=== PATIENT | female | born 1955 | race Caucasian/White ===

== ENCOUNTER 2017-09-03 08:35 | Day surgery (SDC) | payer BC ==
[2017-09-03] MEDS ORDERED: PROPOFOL 10 MG/ML VIAL IV ONE (08:36)
[2017-09-03] MEDS ORDERED: LIDOCAINE 2% MDV (20MG/ML) 20ML VIAL IV ONE (08:36)
[2017-09-03] MEDS ORDERED: FENTANYL PF 100MCG/2ML VIAL IV ONE (08:36)
--- NOTE | 2017-09-04 10:30 | Operative Note ---
DATE OF SURGERY: 09/03/2017 OPERATION: ESOPHAGOGASTRODUODENOSCOPY with multiple biopsies and La dilation. INDICATION: Chronic gastroesophageal reflux disease with pyrosis. The patient also complaining of lower chest dysphagia to solid foods. Upper endoscopy is performed at this time for further evaluation. She has had esophagitis in the past. She is currently taking Protonix 40 mg daily. ANESTHESIA: Intravenous sedation was administered by the department of anesthesiology and included Diprivan titrated to effect. PROCEDURE: Following informed consent from this alert individual, including a discussion of the risks and benefits of the procedure and an opportunity for the patient to ask questions, the patient was in the left lateral decubitus position. The Olympus [id number] video endoscope was inserted into the esophagus without resistance. The proximal esophagus had a normal appearance with normal folds and distensibility. The distal esophagus demonstrated 3 superficial linear ulcerations extending proximally from the squamocolumnar junction for less than 1 cm. There was some mild resistance with passage of the endoscope into the stomach as well. The gastric mucosa had a normal appearance with normal folds and distensibility. There was a small 3-4 mm polyp noted in the gastric fundus which was biopsied. There were smaller diminutive polyps noted as well in the fundus. The remainder of the stomach was endoscopically normal. The pylorus was patent. The duodenal bulb, sweep and descending duodenum were examined in a serial fashion and found to be normal. The endoscope was then withdrawn back into the body of the stomach. Retroflexion accomplished following air insufflation again was unremarkable except for the above-mentioned polyp where biopsies were taken. The endoscope was then straightened and withdrawn to the distal esophagus where a set of biopsies was taken from the areas of ulceration. This could also represent possible short-segment Sanchez's esophagus although did not have the typical appearance. After biopsy, endoscope was then withdrawn back through a normal mid and proximal esophagus and removed from patient. La dilation was then performed with a 48 La dilator with minimal resistance. The patient tolerated the procedure well and was returned to the recovery area in stable condition. IMPRESSION: 1. Three superficial small distal linear esophageal ulcerations, biopsies taken. 2. Gastric fundal polyps, biopsies taken. 3. La dilation with 48-Macedonian dilator for complaints of dysphagia and some resistance to the passage of the endoscope into the stomach. RECOMMENDATION: The patient was advised further recommendations will be forthcoming pending results of pathology today. The patient was advised to increase her Protonix to 40 mg twice daily for the next 6 weeks and then return to once daily. Further recommendations again will be forthcoming pending her progress and biopsy results. Followup will be with Dr. Collins. As always, thank you for allowing me to participate in the care of your patient. CC: Caleb Collins MD [facility] [place]
== END 2017-09-03 11:02 | disposition home or self-care (01) ==
LOC: HOP 08:35
PROVIDERS: ATTEND Internal Medicine Gastroenterology
DX: K22.10 Ulcer of esophagus without bleeding (principal); K31.7 Polyp of stomach and duodenum; R12 Heartburn; R13.10 Dysphagia, unspecified; K20.9 Esophagitis, unspecified; M06.9 Rheumatoid arthritis, unspecified; E78.00 Pure hypercholesterolemia, unspecified
CPT/HCPCS: 43235; 43450; 00731; J3010

== ENCOUNTER 2017-09-17 07:32 | Day surgery (SDC) | payer BC ==
[~2017-09-17 07:32] MED LIST: ACETAMINOPHEN 1,000 MG/100 ML BTL IV ONE; CEFAZOLIN 2 Gram 2 GM/50 ML BAG IVPB ONE
[2017-09-17] MEDS ORDERED: FENTANYL PF 100MCG/2ML VIAL IV ONE (07:33)
[2017-09-17] MEDS ORDERED: PROPOFOL 10 MG/ML VIAL IV ONE (07:33)
[2017-09-17] MEDS ORDERED: BUPIVACAINE 0.25% W/EPI MPF 30ML VIAL IVP ONE ×2 (07:33)
[2017-09-17] MEDS ORDERED: MIDAZOLAM HCL 2MG/2ML VIAL IV ONE (07:33)
[2017-09-17] MEDS ORDERED: LIDOCAINE 2% MDV (20MG/ML) 20ML VIAL IV ONE (07:33)
--- NOTE | 2017-09-18 13:30 | Operative Note ---
DATE OF SURGERY: 09/17/2017 Surgeon: Be Carolina DO PREOPERATIVE DIAGNOSIS: Scalp mass x6 and back mass. POSTOPERATIVE DIAGNOSIS: Scalp mass x6 and back mass. OPERATION: Excision of scalp mass x6 and excision of back mass x1. All masses on scalp were 1.0 cm into the subcu. The mass on the back was 1.0 cm into the subcu as well. Indication: The patient is a 62-year-old female who presents with multiple masses on her scalp. These all had the appearance of [id number] sebaceous cysts. We did discuss excision. Risks, benefits, and alternatives were discussed. The patient also had a mass on her upper back which we discussed excising as well. Thereafter, consent was signed and questions answered. PROCEDURE: The patient was taken to the operating room and placed in a supine position. Local and IV sedation was administered per the department of anesthesia. The patient's back was prepped and draped in the usual fashion. The area around the mass was anesthetized with a total of 3 mL of 0.25% Sensorcaine with epinephrine. A 5 mm punch was used to punch this lesion. This was then passed off the field and was closed with 3-0 nylon. Attention was now turned to the scalp where the scalp was cleansed with baby shampoo. Each one had been pre-marked. Each one was treated in the exact same fashion. This was anesthetized with a total of 2 mL of 0.25% Sensorcaine with epinephrine. An incision was made over the mass. This was dissected free with hemostat and passed off the field. Each one of these was a 1 cm sebaceous cyst. Each one was closed with 3-0 Prolene. She tolerated the procedure well. She was taken to the recovery room in satisfactory condition. FINDINGS AT THE TIME OF SURGERY: Scalp mass x6 and back mass x1. Final pathology pending. CC: Caleb BERNAL
== END 2017-09-17 10:40 | disposition home or self-care (01) ==
LOC: SUR 07:32
PROVIDERS: ATTEND Surgery
DX: R22.0 Localized swelling, mass and lump, head (principal); R22.2 Localized swelling, mass and lump, trunk; D17.1 Benign lipomatous neoplasm of skin and subcutaneous tissue of trunk; L72.11 Pilar cyst; I10 Essential (primary) hypertension; M06.9 Rheumatoid arthritis, unspecified; E78.00 Pure hypercholesterolemia, unspecified; K21.9 Gastro-esophageal reflux disease without esophagitis
CPT/HCPCS: 11406; 11422 ×6; 00300; J3010; J0690

== ENCOUNTER 2018-05-30 18:27 | Emergency (ER) | payer BC ==
--- NOTE | 2018-05-30 19:13 | Emergency Department Record ---
History of Present Illness - General Chief Complaint: Fall Injury Stated Complaint: FALL INJURY Time Seen by Provider: 05/30/18 18:54 Source: Patient Mode of Arrival: Ambulatory Limitations: No limitations - History of Present Illness Initial Comments: pt slipped on ice and landed on butt and outstretched r hand. pt has pain in back and r forearm. pt has chronic back issues and is scheduled to see a neurosurgeon.. she has a hx of bad discs and foot drop Complaint: Fall Onset/Timin -: Minutes(s) Fall From: Standing, Other When Fall Occurred: Just prior to arrival Fall Witnessed: No Place Fall Occurred: Work Loss of Consciousness: None Prolonged Down Time?: No Symptoms Prior to Fall: None Location: Back, Buttocks Location - Extremities: Right: Forearm Context: Tripped/slipped Associated Symptoms: Numbness, Other - [place] Coma Scale Eye Response: (4) Open spontaneously Motor Response: (6) Obeys commands Verbal Response: (5) Oriented Elizabeth Total: 15 - Related Data Allergies Allergy/AdvReac Type Severity Reaction Status Date / Time phenytoin sodium Allergy BONE Verified 08/02/15 09:37 [From Dilantin] MARROW DEPRESSION phenytoin sodium extended Allergy BONE Verified 08/02/15 09:37 [From Dilantin] MARROW DEPRESSION tetracycline Allergy RASH Verified 06/01/15 11:38 Travel Screening - Travel/Exposure Within Last 30 Days Have you traveled within the last 30 days?: No - Travel/Exposure Within Last Year Have you traveled outside the [place] in the last year?: No - Additonal Travel Details Have you been exposed to anyone with a communicable illness?: No - Travel Symptoms Symptom Screening: None Review of Systems Reviewed: No additional complaints except as noted below Constitutional: Reports: As per HPI. Denies: Chills, Fever, Malaise, Night sweats, Weakness, Weight change Eyes: Reports: As per HPI. Denies: Eye discharge, Eye pain, Photophobia, Vision change ENT: Reports: As per HPI. Denies: Congestion, Dental pain, Ear pain, Epistaxis , Hearing loss, Throat pain Respiratory: Reports: As per HPI. Denies: Cough, Dyspnea, Hemoptysis, Stridor, Wheezes Cardiovascular: Reports: As per HPI. Denies: Arrhythmia, Chest pain, Dyspnea on exertion, Edema, Murmurs, Orthopnea, Palpitations, Paroxysmal nocturnal dyspnea, Rheumatic Fever, Syncope Endocrine: Reports: As per HPI. Denies: Fatigue, Heat or cold intolerance, Polydipsia, Polyuria Gastrointestinal: Reports: As per HPI. Denies: Abdominal pain, Constipation, Diarrhea, Hematemesis, Hematochezia, Melena, Nausea, Vomiting Genitourinary: Reports: As per HPI. Denies: Abnormal menses, Discharge, Dyspareunia, Dysuria, Frequency, Hematuria, Incontinence, Retention, Urgency Musculoskeletal: Reports: As per HPI, Back pain. Denies: Arthralgia, Gout, Joint swelling, Myalgia, Neck pain Skin: Reports: As per HPI. Denies: Bruising, Change in color, Change in hair/ nails, Lesions, Pruritus, Rash Neurological: Reports: As per HPI. Denies: Abnormal gait, Confusion, Headache, Numbness, Paresthesias, Seizure, Tingling, Tremors, Vertigo, Weakness Psychiatric: Reports: As per HPI. Denies: Anxiety, Auditory hallucinations, Depression, Homicidal thoughts, Suicidal thoughts, Visual hallucinations Hematological/Lymphatic: Reports: As per HPI. Denies: Anemia, Blood Clots, Easy bleeding, Easy bruising, Swollen glands Past Medical History - SOCIAL HISTORY Smoking Status: Never smoker Alcohol Use: Rare Drug Use: None - RESPIRATORY Hx Respiratory Disorders: Yes Hx Sleep Apnea: Yes Hx of CPAP: Yes - CARDIOVASCULAR Hx Cardio Disorders: Yes Hx Cardiac Cath: Yes (2008) Hx Chest Pain: No (denies) Hx Hypertension: Yes (on meds good control) Hx Palpitations: Yes Comment:: hyperlipidemia - NEURO Hx Neuro Disorders: Yes Hx Seizures: Yes (was treated for this in past but was neurocardiogegenic syncope) Comment:: numbness tingling foot drop in right foot. - GI Hx GI Disorders: Yes Hx Reflux: Yes (on meds fair releif) Hx Ulcer: Yes (possible) Hx of Polyps: Yes (gastric polyps) - Hx Genitourinary Disorders: No - ENDOCRINE Hx Endocrine Disorders: No - MUSCULOSKELETAL Hx Musculoskeletal Disorders: Yes Hx Arthritis: Yes (RA, rt wrist pain, numbness) Comment:: osteoarthritis - PSYCH Hx Psych Problems: No - HEMATOLOGY/ONCOLOGY Hx Hematology/Oncology Disorders: No Comment:: had wide excision bx on face for lesion-was negitative for melenoma Family Medical History Any Significant Family History?: No Family Hx Comment (NOT TO BE USED IN PLACE OF ITEMS BELOW): autoimmune-mother ITP Hx Cancer: Father *Cancer Comment: skin, (m) grandfather-lung cancer *Dementia Comment: (m) grandmother (p) grandfather Hx Depression: Grandparents *Depression Comment: (m) grandmother Hx Diabetes: Father, Mother, Brother/Sister, Grandparents Hx Heart Disease: Father, Mother, Brother/Sister, Grandparents *Heart Comment: brother-WPW Hx HTN: Brother/Sister Hx Resp Disorders: Father, Mother, Brother/Sister, Grandparents *Resp Comment: lung cancer, grandfather-cancer,father-copd, mother, sister, brother-Asthma Hx Stroke: Grandparents Physical Exam - General General Appearance: Alert, Oriented x3, Cooperative, Mild distress - Head Head exam: Normal inspection - Eye Eye exam: Normal appearance, PERRL, EOMI Pupils: Normal accommodation - ENT ENT exam: Normal exam, Mucous membranes moist, Normal external ear exam, Normal orophraynx Ear exam: Normal external inspection. negative: External canal tenderness Nasal Exam: Normal inspection. negative: Discharge, Sinus tenderness Mouth exam: Normal external inspection, Tongue normal Teeth exam: Normal inspection. negative: Dental caries Throat exam: Normal inspection. negative: Tonsillar erythema, Tonsillar exudate - Neck Neck exam: Normal inspection, Full ROM. negative: Tenderness - Respiratory Respiratory exam: Normal lung sounds bilaterally. negative: Respiratory distress - Cardiovascular Cardiovascular Exam: Regular rate, Normal rhythm, Normal heart sounds - GI/Abdominal GI/Abdominal exam: Soft, Normal bowel sounds. negative: Tenderness - Rectal Rectal exam: Deferred - exam: Deferred - Extremities Extremities exam: Normal inspection, Full ROM, Normal capillary refill, Tenderness (r wrist and forearm) - Back Back exam: Reports: Full ROM, Tenderness. Denies: Muscle spasm, Rash noted - Neurological Neurological exam: Alert, CN II-XII intact, Normal gait, Oriented X3 - Psychiatric Psychiatric exam: Normal affect, Normal mood - Skin Skin exam: Dry, Intact, Normal color, Warm Course Vital Signs 05/30/18 18:38 Temperature 97.8 F Pulse Rate 60 Respiratory 16 Rate Blood Pressure 149/94 Pulse Ox 95 Disposition Disposition: Discharge Clinical Impression: Contusion Qualifiers: Encounter type: initial encounter Contusion area: forearm Laterality: right Qualified Code(s): S50.11XA - Contusion of right forearm, initial encounter Lumbar strain Qualifiers: Encounter type: initial encounter Qualified Code(s): S39.012A - Strain of muscle, fascia and tendon of lower back, initial encounter Disposition: Home, Self-Care Condition: (1) Good Instructions: Contusion in Adults (ED), Low Back Strain (ED) Additional Instructions: follow up with family doctor. return sooner if worse. ice and elevation. Forms: Patient Portal Access Quality - Quality Measures Quality Measures: N/A - Blood Pressure Screening Does Patient Have Any of the Following: No Blood Pressure Classification: Hypertensive Reading Systolic Measurement: 149 Diastolic Measurement: 94 Screening for High Blood Pressure: < First Hypertensive BP, F/U Documented > [ [id number]] First Hypertensive Follow-up Interventions: Follow-up with rescreen GT 1 day and LT 4 weeks.
--- NOTE | 2018-05-31 07:31 | RADIOLOGY REPORT ---
EXAM: LUMBAR SPINE HISTORY: CHRONIC LOWER BACK PAIN. TECHNIQUE: Two views of the lumbar spine were obtained. Comparison: Lumbar spine radiographs 04/14/16. FINDINGS: Five non-rib bearing lumbar type vertebral bodies are counted. Disk space height loss best appreciated at L5-S1. Small anterior end plate osteophytes at multiple levels. Lower lumbar facet arthrosis. The vertebral body heights and alignment appear maintained. Right upper abdominal quadrant surgical clips. IMPRESSION: 1. NO ACUTE RADIOGRAPHIC FINDINGS. 2. LUMBAR SPINE DEGENERATIVE FINDINGS WITHOUT APPRECIABLE PROGRESSION SINCE 2016 COMPARISON RADIOGRAPHS. JOB NUMBER: [id number] [facility]
--- NOTE | 2018-06-03 13:04 | RADIOLOGY REPORT ---
EXAM: RIGHT FOREARM HISTORY: FALL, PAIN. TECHNIQUE: Two views of the right forearm were obtained. Comparison: None. FINDINGS: No acute fracture is seen. No obvious acute abnormalities of the elbow or wrist. If there is continued clinical concern, cone view may be obtained in the area of interest. IMPRESSION: ABOVE. JOB NUMBER: [id number] [facility]
== END 2018-05-30 20:24 | disposition home or self-care (01) ==
LOC: ER 18:27
DX: S39.012A Strain of muscle, fascia and tendon of lower back, initial encounter (principal); S50.11XA Contusion of right forearm, initial encounter; R22.0 Localized swelling, mass and lump, head; Y92.481 Parking lot as the place of occurrence of the external cause; Y99.0 Civilian activity done for income or pay; I10 Essential (primary) hypertension
CPT/HCPCS: 72100; 99283; 99284